=== PATIENT | male | born 1970 | race Two or more races ===

== ENCOUNTER 2020-10-05 16:19 | Emergency (ER) | payer OTHER ==
[~2020-10-05] VITALS: Ht 180.3 cm; Wt 115.7 kg
[~2020-10-05 16:19] MED LIST: CATAFLAM50 MG PO; COZAAR50 MG; FENOFIBRATE145 MG; INVOKANA100 MG; LISINOPRIL10 MG; METFORMIN HCL500 M1
[2020-10-05] MEDS ORDERED: COZAAR25 MG PO (16:28)
[2020-10-05] MEDS ORDERED: JANUVIA100 MG PO (16:28)
[2020-10-05] MEDS ORDERED: ATORVASTATIN CA20 MG PO (16:28)
[2020-10-05] MEDS ORDERED: GLIMEPIRIDE4 M1 PO (16:28)
[2020-10-05] MEDS ORDERED: INVOKANA300 MG PO (16:29)
[2020-10-05] MEDS ORDERED: TERBINAFINE HC250 MG PO (16:29)
[2020-10-05] MEDS ORDERED: CHILDREN'S ASPI81 MG PO (16:29)
== END 2020-10-05 21:29 | disposition home or self-care (01) ==
LOC: ER 16:19
DX: S30.0XXA Contusion of lower back and pelvis, initial encounter (principal); W18.39XA Other fall on same level, initial encounter; Y93.89 Activity, other specified; Y92.69 Other specified industrial and construction area as the place of occurrence of the external cause; Y99.8 Other external cause status

== ENCOUNTER 2023-12-21 08:17 | Outpatient (CLI) | payer OTHER ==
[~2023-12-21 08:17] MED LIST changes: +ATORVASTATIN CA20 MG PO; +CHILDREN'S ASPI81 MG PO; +COZAAR25 MG PO; +GLIMEPIRIDE4 M1 PO; +INVOKANA300 MG PO; +JANUVIA100 MG PO; +TERBINAFINE HC250 MG PO
== END 2023-12-21 08:19 | disposition home or self-care (01) ==
LOC: SONOGRAMA 08:17
PROVIDERS: ATTEND Pathology Anatomic Pathology
DX: D34 Benign neoplasm of thyroid gland (principal); E07.89 Other specified disorders of thyroid; E04.1 Nontoxic single thyroid nodule